=== PATIENT | female | born 1985 | race Caucasian/White ===

== ENCOUNTER 2019-01-04 10:30 | Inpatient (IN) | payer MEDICAID, OTHER, SELFPAY ==
[2019-01-13] MEDS ORDERED: NS w/ Oxytocin 10 units 500 ML IV SCH (23:45)
[2019-01-13] MEDS ORDERED: Lactated Ringer's 1,000 ML IV SCH (23:45)
[2019-01-13] MEDS ORDERED: Butorphanol Tartrate 1 MG/ML VIAL SLOW IVP PRN (23:55)
[2019-01-13] MEDS ORDERED: Ondansetron PF 4 MG/2 ML Vial IVP PRN (23:55)
[2019-01-13] MEDS ORDERED: hydrALAZINE 20 MG/ML VIAL SLOW IVP PRN (23:55)
[2019-01-13] MEDS ORDERED: Promethazine HCl 25 MG/ML VIAL IM PRN (23:55)
[2019-01-13] MEDS ORDERED: NS / Oxytocin 40 units/1000ml 1,000 ML IV PRN (23:55)
[2019-01-13] MEDS ORDERED: Misoprostol 200 MCG TAB PR PRN (23:55)
[2019-01-13] MEDS ORDERED: Lidocaine 1% (PF) 30 ML VIAL SC PRN (23:55)
[2019-01-13] MEDS ORDERED: Ibuprofen 800 MG TAB PO PRN (23:55)
[2019-01-13] MEDS ORDERED: Methylergonovine 0.2 MG/ML VIAL IM PRN (23:55)
[2019-01-13] MEDS ORDERED: Carboprost 250 MCG/ML AMP IM PRN (23:55)
--- NOTE | 2019-01-13 23:55 | PDOC.FPROB ---
FMR OB H&P: HPI - History of Present Illness Chief Complaint: IOL History of Present Illness: 33 yo @ 38 weeks by 7.6 US presents for IOL 2/2 intractable pain from cholelithiasis. Pt reports contractions occurring for a few hours prior to arrival and now reports feeling painful contractions q5min. Reports pos movement, no bleeding, discahrge, LOF, fever, chills. Primary Care Physician: Catalina JASON FMR OB H&P: Current - Care : 7 Para: 6 Gestational age: 37 Due date: 01/28/2019 Dating Criteria: 7.6US Course/Complications: Chronic cholelithiasis causing intractable pain. 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: NILM pap this - Surgical History Sx History: None - Social History Social History: No alcohol tobacco or drug use - Family History Family History: None FMR OB H&P: Medications - Current Home Medications: Medication Instructions Recorded Confirmed Type Pnv No.95/Ferrous Fum/Folic AC 50 mg PO DAILY 01/02/19 01/13/19 History [ Caplet] Allergies/Adverse Reactions: Allergies Allergy/AdvReac Type Severity Reaction Status Date / Time No Known Allergies Allergy Verified 01/10/19 22:10 FMR OB H&P: ROS - Review of Systems General: denies: fever/chills, weight/appetite/sleep changes ENT: denies: nasal congestion, rhinorrhea Cardiovascular: reports: edema. denies: chest pain, palpitation Respiratory: denies: cough, shortness of breath Gastrointestinal: reports: abdominal pain (currently denies, prior episodic colicky pain). denies: nausea, vomiting, diarrhea, constipation Genitourinary (Female): reports: contractions. denies: dysuria, vaginal discharge, vaginal bleeding, vaginal pressure Musculoskeletal: denies: pain, tenderness Neurologic: denies: numbness Integumentary: denies: itching, rash Psychological: denies: anxiety FMR OB H&P: Vital Signs - Maternal Vital signs: WNL - Heart Tones Baseline: 140 Variability: moderate Acceleration: absent Deceleration: absent Category: category 1 [place] contractions every: 5 min FMR OB H&P: Physical Exam - Physical Exam General: NAD, awake, alert and oriented HEENT: normocephalic and atraumatic, PERRLA, EOMI, MMM, conjunctiva clear Neck: trachea midline, no LAD Chest: non-tender to palpation Heart: RRR, normal S1/S2, no murmurs/rubs/gallops, pulses present General: CTAB, no respiratory distress, good air movement, no rales/rhonchi, no wheezing, no retractions Abdomen: soft, gravid, non-tender, bowel sound present, no masses Musculoskeletal: pulses present, FROM in all four extremities Neurological: cranial nerves II through XII intact Skin: no rash Lymphatic: no purpura - Pelvic Exam Vulva: normal hair distribution, appropriate brenna stage SVE: 3/50/-2 Salas score: 6 Presentation: vertex FMR OB H&P: A/P - Problem List (1) Grand multiparity in labor and delivery, antepartum Current Visit: Yes Status: Acute Code(s): O09.40 - SUPERVISION OF W GRAND MULTIPARITY, UNSP TRIMESTER (2) History of hemorrhage Current Visit: Yes Status: Acute Code(s): Z86.2 - PRSNL HISTORY OF DIS OF THE BLD/BLD-FORM ORG/IMMUN MECHNSM (3) Current Visit: No Status: Acute (4) Cholelithiasis Current Visit: No Status: Acute Code(s): K80.20 - CALCULUS OF GALLBLADDER W/ O CHOLECYSTITIS W/O OBSTRUCTION Disposition: 1) TIUP w/ cholelithiasis, symptomatic - IOL with pitocin as needed for adequate contractions - pt currently bairon q5, recheck cervix 4 hours 2) Cholelithiasis, asymptomatic currently 3) Grand multiparity - prior PPH, aware 4) h/o pph - aware Dispo: Stable, proceed with IOL and pt will likely require pp surgical consult IP vs OP dependent on symptoms. Discussion: Date/Time: 01/13/19 1750 This H&P was discussed with [] and [] who agree with the above documentation and plan.
[2019-01-14 00:59] LABS: Hemoglobin 10.7 g/dL (12.0-16.0); Mean Corpuscular HGB CONC 34.1 g/dL (32.0-36.0); Mean Corpuscular Hemoglobin 25.4 pg (27.0-31.0); Mean Corpuscular Volume 74.4 fL (78.0-98.0); Mean Platelet Volume 10.1 fL (7.4-10.4); Platelet Count 284 thou/uL (130-400); RBC Distribution Width 19.1 % (11.5-14.5); White Blood Cell (WBC) Count 8.8 thou/uL (4.8-10.8)
[2019-01-14 01:21] LABS: Hep B Surf Ag Non-Reactive S/CO (NonReactive)
[2019-01-14 01:30] LABS: Syphilis Antibody Nonreactive (Nonreactive); Syphilis Antibody Index 0.05 S/CO (<1.00 Non-Reactive)
[2019-01-14 04:17] VITALS: BMI 28.5
--- NOTE | 2019-01-14 06:07 | PDOC.EVN ---
Event Note - Event Note Event Note: Strip reviewed. Cat one pos accels no late or variables. BP normal. Cervix unchanged and ctx have decreased. Pitocin started.
[2019-01-14 07:03] LABS: HBSAg Index 0.21 S/CO (0-0.99)
[2019-01-14] MEDS ORDERED: Fentanyl 4 mcg/Bup 0.1% Cadd 100 ML ONE (08:27)
--- NOTE | 2019-01-14 08:39 | PDOC.LDPN ---
Labor & Delivery Progress Note - Subjective Subjective: painful contractions - Objective Vital signs reviewed and normal: yes General: resting, breathing through contractions - Assessment (1) Grand multiparity in labor and delivery, antepartum Code(s): O09.40 - SUPERVISION OF W GRAND MULTIPARITY, UNSP TRIMESTER Current Visit: Yes Status: Acute (2) History of hemorrhage Code(s): Z86.2 - PRSNL HISTORY OF DIS OF THE BLD/BLD-FORM ORG/IMMUN MECHNSM Current Visit: Yes Status: Acute (3) Anemia affecting Code(s): O99.019 - ANEMIA COMPLICATING , UNSPECIFIED TRIMESTER Current Visit: No Status: Acute (4) Cholelithiasis Code(s): K80.20 - CALCULUS OF GALLBLADDER W/O CHOLECYSTITIS W/O OBSTRUCTION Current Visit: No Status: Acute (5) Current Visit: No Status: Acute -: at 38.1 wks by 7.6 wk sono here for eIOL 2/2 intractable pain from cholelithiasis # Expectant Management - on 10 ml/hr of pitocin, cxns q2-4, painful - desires epidural - /-3 at 0815 - will proceed with epidural and pursue active management to try to deter PPH - risks/benefits of balloon, AROM, epidural all discussed with mother - will plan for balloon after epidural # Cholelithiasis, asymptomatic currently - 3mm CBD on last US # Grand multiparity, h/o PPH - required transfusion after last delivery
[2019-01-14] MEDS ORDERED: Lidocaine 1.5%/Epinephrine 1:200,000 5 ML AMPUL IJ ONE (08:44)
[2019-01-14] MEDS ORDERED: Acetaminophen 325 MG TAB PO PRN (08:50)
[2019-01-14] MEDS ORDERED: Ondansetron PF 4 MG/2 ML Vial IVP PRN (08:50)
[2019-01-14] MEDS ORDERED: Lactated Ringer's 500 ML IV PRN (08:50)
[2019-01-14] MEDS ORDERED: Naloxone HCl 0.4 mg/ml Vial IVP PRN ×2 (08:50)
[2019-01-14] MEDS ORDERED: diphenhydrAMINE 50 MG/ML VIAL IVP PRN (08:50)
[2019-01-14] MEDS ORDERED: ePHEDrine/0.9% NaCl/PF SYRINGE 50 mg/10 ml SLOW IVP PRN (08:50)
[2019-01-14] MEDS ORDERED: Promethazine HCl 25 MG/ML VIAL IM PRN (08:50)
[2019-01-14] MEDS ORDERED: Communication Order-Pharmacy FS SCH (09:00)
[2019-01-14] MEDS ORDERED: Fentanyl 4 mcg/Bupivacaine 0.1% Cassette 100 ML EPIDURAL SCH (09:00)
--- NOTE | 2019-01-14 11:47 | PDOC.LDPN ---
Labor & Delivery Progress Note - Subjective Subjective: comfortable - Objective Vital signs reviewed and normal: yes General: NAD, resting - Assessment (1) Grand multiparity in labor and delivery, antepartum Code(s): O09.40 - SUPERVISION OF W GRAND MULTIPARITY, UNSP TRIMESTER Current Visit: Yes Status: Acute (2) History of hemorrhage Code(s): Z86.2 - PRSNL HISTORY OF DIS OF THE BLD/BLD-FORM ORG/IMMUN MECHNSM Current Visit: Yes Status: Acute (3) Anemia affecting Code(s): O99.019 - ANEMIA COMPLICATING , UNSPECIFIED TRIMESTER Current Visit: No Status: Acute (4) Cholelithiasis Code(s): K80.20 - CALCULUS OF GALLBLADDER W/O CHOLECYSTITIS W/O OBSTRUCTION Current Visit: No Status: Acute (5) Current Visit: No Status: Acute -: at 38.1 wks by 7.6 wk sono here for eIOL 2/2 intractable pain from cholelithiasis # Expectant Management - on 10 ml/hr of pitocin, cxns q2-4, painful - epidural placed - /-2 at 1130, AROM clear fluid 930 - pursue active management to try to deter PPH # Cholelithiasis, asymptomatic currently - 3mm CBD on last US # Grand multiparity, h/o PPH
[2019-01-14] MEDS ORDERED: NS / Oxytocin 40 units/1000ml 1,000 ML ONE (13:39)
[2019-01-14] MEDS ORDERED: Methylergonovine 0.2 MG/ML VIAL ONE (13:39)
[2019-01-14] MEDS ORDERED: Carboprost 250 MCG/ML AMP ONE (13:39)
[2019-01-14] MEDS ORDERED: Misoprostol 200 MCG TAB ONE (13:39)
[2019-01-14] MEDS ORDERED: Milk Of Magnesia 30 ML UDCUP PO PRN ×2 (14:18→21:58)
[2019-01-14] MEDS ORDERED: Lanolin Ointment 7 GM TUBE TOP PRN ×2 (14:18→21:58)
[2019-01-14] MEDS ORDERED: Preparation H Ointment 28 GM TUBE PR PRN ×2 (14:18→21:58)
[2019-01-14] MEDS ORDERED: Benzocaine-Menthol 82.5 ML CAN TOP PRN ×2 (14:18→21:58)
[2019-01-14] MEDS ORDERED: Bisacodyl 10 MG SUPP PR PRN ×2 (14:18→21:58)
[2019-01-14] MEDS ORDERED: diphenhydrAMINE 25 MG CAP PO PRN ×2 (14:18→21:58)
[2019-01-14] MEDS ORDERED: diphenhydrAMINE 50 MG/ML VIAL ONE (14:55)
[2019-01-14 15:00] LABS: %Basophils 0.1 % (0.0-1.0); %Eosinophils 0.2 % (0.0-10.0); %Lymphocytes 22.3 % (21.0-51.0); %Monocytes 5.5 % (0.0-10.0); %Neutrophils 71.8 % (42.0-75.0); Hemoglobin 12.3 g/dL (12.0-16.0); Mean Corpuscular HGB CONC 33.2 g/dL (32.0-36.0); Mean Corpuscular Hemoglobin 25.4 pg (27.0-31.0); Mean Corpuscular Volume 76.4 fL (78.0-98.0); Mean Platelet Volume 9.8 fL (7.4-10.4); Platelet Count 311 thou/uL (130-400); RBC Distribution Width 19.1 % (11.5-14.5); Red Blood Cell (RBC) Count 4.85 mill/uL (4.20-5.40); White Blood Cell (WBC) Count 18.1 thou/uL (4.8-10.8)
[2019-01-14 15:14] LABS: Anion Gap 22 mmol/L (10-20); Carbon Dioxide 16 mmol/L (22-29); Chloride 105 mmol/L (98-107); Potassium 4.5 mmol/L (3.5-5.1); Sodium 138 mmol/L (136-145)
[2019-01-14 15:26] LABS: Actual Bicarbonate (HCO3a) 11.8 mEq/L (22-28); Base Excess (BEa) -12.8 mEq/L (-2.0 to +3.0); Carboxyhemoglobin (COHb) 0.8 gm% (0.0-3.0); Hemoglobin (Hb) 12.6 g/dL (12.0-16.0); O2 Tension (PaO2) 116.6 mmHg (80.0-100.0); Potassium - ABG Lab 5.01 mmol/L (3.70-5.30)
[2019-01-14 15:27] LABS: ALV-art Gradient 52.415 (0-20); CO2 Tension 24.5 mmHg (35.0-45.0); Puncture Site LBA
--- NOTE | 2019-01-14 15:30 | PDOC.EVN ---
Event Note - Event Note Event Note: Called to bedside for sudden onset shortness of breath At bedside patient clutching chest saying it is hard to breath Initial BP with patient appropriately shaking PP was 180/100 Hooked up on manager monitoring and HR 155, sats 100% on RA 2 episodes of vomiting PE Gen: distressed Pulm: CTA-B CV: tachycardic, no murmur, cap <3 OB: appropriate bleeding PP, firm uterus Plan - patient improved after 50mg Benadryl IV - pulse to 110s resting comfortably - reaction to methergine (allergy?), anxiety, PE are differential - Patient resting comfortably at this time, EKG sinus tachycardia, CXR WNL, sending patient for CTA to r/o PE
[2019-01-14] MEDS ORDERED: diphenhydrAMINE 50 MG/ML VIAL IVP SCH (15:33)
[2019-01-14] MEDS ORDERED: Iopamidol 370 76% 100 ML VIAL ONE (15:44)
[2019-01-14 16:03] LABS: Lactic Acid 3.2 mmol/L (0.5-2.2)
--- NOTE | 2019-01-14 16:52 | CT ---
Exam: CT angiogram of the chest HISTORY: Chest pain. Recent delivery. Code green. COMPARISON: None TECHNIQUE: CT angiogram of the chest is performed in the axial plane. Three-dimensional reformatted i mages are submitted for interpretation FINDINGS: Mediastinum: No mass, lymphadenopathy or hematoma. HEART: Normal size. No significant pericardial fluid. Aorta: No aneurysm or dissection Upper solid abdominal viscera: No abnormality enhancement. Trachea and central bronchi: Patent Pleural spaces: No effusion Lung parenchyma: No masses or consolidation. Dependent atelectatic change. Pneumothorax: None Nonspecific subcutaneous emphysema in the right periclavicular soft tissues. Osseous structures: No osteoblastic or osteolytic lesions. Air within the central spinal canal is pre sumed to be due to recent epidural. Pulmonary arteries:Adequate contrast opacification of the pulmonary arterial system to the level of t he segmental arteries. No filling defect to suggest thromboembolism. IMPRESSION: 1. No evidence of pulmonary artery embolism to the level of the segmental arteries. 2. Subcutaneous emphysema as well as air in the central spinal canal is presumed to be iatrogenic.
--- NOTE | 2019-01-14 16:59 | RAD ---
CHEST ONE VIEW: 01/14/19 HISTORY: Shortness of breath. COMPARISON: None. FINDINGS: Overlying external pacer pads are noted. Normal cardiac silhouette. Pulmonary vessels and hilum are n ormal. Costophrenic angles are clear. No masses or consolidation. No pneumothorax on the supine proj ection. IMPRESSION: No acute cardiopulmonary process. POS: OFF
[2019-01-14 17:35] LABS: ALT (SGPT) 11 U/L (8-55); AST (SGOT) 17 U/L (5-34); Albumin 3.6 g/dL (3.5-5.0); Alkaline Phosphatase 271 U/L (40-150); Anion Gap 24 mmol/L (10-20); BUN (Urea Nitrogen) 4 mg/dL (7.0-18.7); Bilirubin, Total 2.4 mg/dL (0.2-1.2); Calc. Creatinine Clearance 141 mL/min (70-130); Calcium 9.9 mg/dL (7.8-10.44); Carbon Dioxide 15 mmol/L (22-29); Chloride 104 mmol/L (98-107); Estimated GFR-MDRD Greater than 90; Globulin 4.1 g/dL (2.4-3.5); Glucose 69 mg/dL (70-105); Potassium 4.4 mmol/L (3.5-5.1); Protein, Total 7.7 g/dL (6.0-8.3); Sodium 139 mmol/L (136-145)
[2019-01-14] MEDS ORDERED: diphenhydrAMINE 25 MG CAP PO SCH (18:00)
[2019-01-14] MEDS ORDERED: Docusate Calcium (SURFAK) 240 MG CAP PO SCH (21:00)
[2019-01-14] MEDS ORDERED: diphenhydrAMINE 25 MG CAP ONE (21:32)
[2019-01-14] MEDS ORDERED: Adacel (T-DAP) 0.5 ML SYRINGE IM ONE (21:58)
[2019-01-14] MEDS: Dextrose 5%-Lactated Ringers 1,000 ML IV SCH (22:46)
[2019-01-14] MEDS: Ibuprofen 800 MG TAB PO PRN (22:50)
[2019-01-14] MEDS: Docusate Calcium (SURFAK) 240 MG CAP PO SCH (22:51)
[2019-01-14 23:21] LABS: Lactic Acid 1.4 mmol/L (0.5-2.2)
[2019-01-15] MEDS: Dextrose 5%-Lactated Ringers 1,000 ML IV SCH (02:33)
[2019-01-15] MEDS ORDERED: diphenhydrAMINE 25 MG CAP PO SCH (04:00)
[2019-01-15 04:59] LABS: Hemoglobin 10.7 g/dL (12.0-16.0); Mean Corpuscular HGB CONC 32.9 g/dL (32.0-36.0); Mean Corpuscular Hemoglobin 25.1 pg (27.0-31.0); Mean Corpuscular Volume 76.1 fL (78.0-98.0); Mean Platelet Volume 9.5 fL (7.4-10.4); Platelet Count 265 thou/uL (130-400); RBC Distribution Width 19.3 % (11.5-14.5); Red Blood Cell (RBC) Count 4.27 mill/uL (4.20-5.40)
[2019-01-15] MEDS: Ibuprofen 800 MG TAB PO PRN ×2 (06:10→14:15)
--- NOTE | 2019-01-15 08:07 | PDOC.PP ---
Post Progress Note Post Day #: 1 Subjective: Pt doing well. Denies any SOB. Denies any fever or chills. Denies any acute events overnight. Pt ready to go home if able to day. Denies any itching or rash. PO intake tolerated: yes Flatus: yes Ambulation: yes Vital Signs (12 hours) Temp Pulse Resp BP BP Pulse Ox 01/15/19 04:07 97.7 F 62 16 113/63 01/14/19 23:40 97.7 F 77 20 108/61 01/14/19 22:43 98.4 F 73 20 110/61 01/14/19 21:42 99.0 F 76 18 110/56 L 97 Weight Weight 70.76 kg - Physical Examination General: NAD Cardiovascular: no m/r/g, RRR Respiratory: clear to auscultation bilaterally, non-labored breathing Abdominal: + bowel sounds, lochia (Reports as light), no distention, appropriately TTP Fundus firm & at: below umbilicus Extremities: negative homans (B) Neurological: no gross focal deficits Psychiatric: A&Ox3, normal affect Result Diagrams: 01/15/19 04:35 01/14/19 14:50 Additional Labs: Post Labs Blood Type B POSITIVE 01/14/19 00:32 Hep Bs Antigen Non-Reactive S/CO (NonReactive) 01/14/19 00:32 (1) Grand multiparity in labor and delivery, antepartum Code(s): O09.40 - SUPERVISION OF W GRAND MULTIPARITY, UNSP TRIMESTER Status: Acute (2) Anemia, Code(s): O90.81 - ANEMIA OF THE PUERPERIUM Status: Acute Comment: secondary to acute blood loss at delivery and in early ppartum period (3) Cholelithiasis Code(s): K80.20 - CALCULUS OF GALLBLADDER W/O CHOLECYSTITIS W/O OBSTRUCTION Status: Acute (4) Grand multipara Code(s): Z64.1 - PROBLEMS RELATED TO MULTIPARITY Status: Acute (5) Term delivered Code(s): O80 - ENCOUNTER FOR FULL-TERM UNCOMPLICATED DELIVERY Status: Acute - Assessment/Plan ->7 at 38.1 wk by 7.6 wk sono delivered CHRISTOPHER Morrow via on 01/14/19 @ 14: 05. eIOL 2/2 intractable pain from cholelithiasis # Post Day 1 -Routine post care -Pt H&H stable. Reports light lochia. -Pt breast/bottle feeding #Alllergic Reaction -Pt had episode of increased tachy and SOB yesterday after delivery. -CTA negative. CXR negative. Labs unremarkable. -At this time we believe pt had an allergic reaction to methergine given for pph ppx as pt had pph in prior requiring transfusion -Has been on sonido benadryll for last 24 hours # Cholelithiasis, asymptomatic currently - 3mm CBD on last US -Bili 2.1. -Will want General Surgery consult outpatient. # Grand multiparity, h/o PPH
--- NOTE | 2019-01-15 08:52 | DN ---
DATE OF PROCEDURE: 01/14/2019 DELIVERING PHYSICIANS: Include Dr. Mackenzie Flores, Dr. Arjun House, and Dr. Dash Arnold, PGY-3. PROCEDURE PERFORMED: Spontaneous vaginal delivery. ANESTHESIA: Epidural. QBL: 50 mL. PREOPERATIVE DIAGNOSES: 1. Term intrauterine in labor. 2. Elective induction of labor secondary to intractable pain from cholelithiasis. 3. History of hemorrhage requiring transfusion. POSTOPERATIVE DIAGNOSES: 1. Term intrauterine , delivered. 2. Elective induction of labor secondary to intractable pain from cholelithiasis. 3. History of hemorrhage requiring transfusion. INDICATIONS: A 33-year-old female G7, P6, presented to L and D for induction of labor due to intractable pain due to cholelithiasis for the 3 mm stone found on ultrasound prior to this induction. DELIVERY NOTE: This is a 33-year-old female, GRajan, P6-0-0-6 at 38 and 1 week. She delivered a viable female infant at 1405 hours on 01/14/2019. Following an uneventful antepartum course, a vigorous female was delivered over the intact perineum in the occiput anterior position. Anterior shoulder and remainder of body delivered. Body cord was noted. Head was held down, and mouth and nares were bulb suctioned. Cord clamped, cut, and cord blood collected. Placenta delivered with intact with a three-vessel cord noted. Some fundal massage was performed, and fundus was firm. Cervix and vagina were inspected and found free of lacerations. We then gave oral Cytotec and a dose of Methergine for hemorrhage prophylaxis as on her prior , she required a transfusion. Next, infant went to nursery in good condition for routine care. Apgars were 9 and 9 at 1 and 5 minutes respectively. The patient tolerated the delivery well and went to for routine recovery care. Job ID: [id number]
[2019-01-15] MEDS ORDERED: Adacel (T-DAP) 0.5 ML SYRINGE IM ONE (09:00)
[2019-01-15] MEDS ORDERED: Prenatal Vitamin 1 TAB PO SCH ×2 (09:00)
[2019-01-15] MEDS: Docusate Calcium (SURFAK) 240 MG CAP PO SCH (09:01)
--- NOTE | 2019-01-15 13:45 | PRG ---
DATE OF SERVICE: 01/14/2019 EVENT NOTE: SUBJECTIVE: The patient is a 33-year-old female who just delivered a female via uncomplicated term spontaneous vaginal delivery at 1405 hours. I was suddenly called to the room approximately 1437 hours with the patient reports of acute shortness of breath and chest pain. When I arrived, the patient was sitting up, very anxious in appearance, shaking violently. Nurse reported her initial saturation was 85%. However by the time I arrived just moments later, the patient was saturating 99% on room air, pulse was in the 140s. Blood pressure was difficult to obtain; however, the patient obtained a blood pressure at the ankle while she is sitting at 196/22 and a pulse in the 170s at that time. A code clementine had been called at the time of my arrival. At this point, EKG, chest x-ray, cardiac enzymes, lactic acid, and ABG were all ordered. Given her violent shaking, EKG was difficult to obtain. Again in discussing and talking to the patient, the patient reported chest pain and difficulty breathing. The patient on exam appeared to be having no signs of circulatory problems as had good capillary refill. Good color in her lips. The patient at this prior time of delivery had received 800 mcg of Cytotec, 0.2 mg of Methergine, and 40 of Pitocin as a prophylactic measure for hemorrhage. The patient and her prior delivery had experienced hemorrhage requiring blood transfusions. The patient was sat up and blood pressures were retaken and noted to be 180s/141, pulse of 117, again saturating 100% at 1457 hours. The patient was given 50 mg of Benadryl IV in thought of a possible allergic reaction. Within 10 minutes, the patient had reverted back to a calm state without shaking. Pain had resolved. Blood pressure improved to 140/63, pulse in the 120s. Most recent blood pressure at 1548 hours is 124/58, pulse of 105. The patient again reports that she has resolution of her symptoms. In talking to the , the patient denies any previous reactions similar with her 6 prior deliveries. In reviewing lab work, the patient was noted to have a white count of 18.1, hemoglobin 12.3, hematocrit 37.1, and platelets of 311,000. ABG showed a blood gas of 7.3 with a bicarb of 11.1, CO2 of 24.5, O2 of 116, base excess of -12.8, sodium of 138, potassium of 4.5, chloride of 105. Lactic acid and cardiac enzymes are still pending. ASSESSMENT AND PLAN: The patient appears to have some kind of reaction in the immediate period. Given the quick resolution of symptoms with Benadryl, she has likely had a reaction to medication given her symptoms of chest pain, shortness of breath, several episodes of nausea and vomiting. During the case, her hypertension and tachycardia may be attributed to Methergine. A CT angiogram will be performed to evaluate for any evidence of pulmonary embolism. Cardiac enzymes are still pending, which will be followed. At this time, the patient will be continued on p.o. Benadryl 25 mg q.6 hours for the next 24 hours. Addendum: Work up all negative. After resolution of symptoms with benadryl pt has remained stable with out any concerning signs or symptoms. Job ID: [id number] MTDD
[2019-01-15 20:11] VITALS: BP 114/77; TEMP 98.3
== END 2019-01-15 20:21 | disposition home or self-care (01) | DRG 806 ==
LOC: EDSTATUS 10:30 → MERGE 10:30 → L&D 01-13 22:00 → 3SW 01-14 21:52 → 3SE 01-15 11:25 → 3SW 01-15 11:26
PROVIDERS: ADMIT Obstetrics & Gynecology; ATTEND Obstetrics & Gynecology
PROC: 10907ZC Drainage of Amniotic Fluid, Therapeutic from Products of Conception, Via Natural or Artificial Opening (ICD-10-PCS; principal; 2019-01-13)
PROC: 10E0XZZ Delivery of Products of Conception, External Approach (ICD-10-PCS; 2019-01-13)
PROC: 3E033VJ Introduction of Other Hormone into Peripheral Vein, Percutaneous Approach (ICD-10-PCS; 2019-01-13)
DX: O99.62 Diseases of the digestive system complicating childbirth (principal); D62 Acute posthemorrhagic anemia; Z37.0 Single live birth; K80.20 Calculus of gallbladder without cholecystitis without obstruction; O99.02 Anemia complicating childbirth; Z3A.39 39 weeks gestation of pregnancy; O9A.23 Injury, poisoning and certain other consequences of external causes complicating the puerperium; T48.0X1A Poisoning by oxytocic drugs, accidental (unintentional), initial encounter
CPT/HCPCS: 36415; 51702; 71045; 71275; 76815; 80051; 82805; 83605; 84484; 85027; 86780; 86850; 86900; 86901; 87340; 90715; 93005; 93010; J0360; J0595; J1200; J2210; J2590; J3490; Q0163; Q9967

== ENCOUNTER 2019-01-04 10:38 | Day surgery (SDC) | payer SELFPAY ==
[2019-01-04 10:58] VITALS: BMI 27.6
[2019-01-04] MEDS ORDERED: Acetaminophen 500 MG TAB PO SCH (11:15)
[2019-01-04] MEDS ORDERED: Iron Sucrose Complex 500 MG in Sodium Chloride 0.9% 250 ML 250 ML IVPB SCH (11:15)
== END 2019-01-04 11:39 | disposition home health service (06) ==
LOC: EDBD → L&D/OP 10:38
PROVIDERS: ATTEND Obstetrics & Gynecology
DX: O99.019 Anemia complicating pregnancy, unspecified trimester (principal); Z3A.00 Weeks of gestation of pregnancy not specified
CPT/HCPCS: 99282; J1756; J7050

== ENCOUNTER 2019-01-10 21:30 | Inpatient (IN) | payer OTHER, SELFPAY ==
[2019-01-10] MEDS ORDERED: hydrALAZINE 20 MG/ML VIAL SLOW IVP PRN (22:04)
[2019-01-10 22:10] VITALS: BMI 25.2
--- NOTE | 2019-01-10 22:13 | PDOC.FPROB ---
FMR OB H&P: HPI - History of Present Illness Chief Complaint: Abdominal pain Indentification: 33 year old at 37.4 wks History of Present Illness: 33 year old at 37.4 wks by 7.6 wk sono presents with abdominal pain since 10:00 AM. Patient reports the pain started out mild. She generally didn't feel well, but approximately 1-2 hours prior to arrival, patient noted what she thought to be intense contractions that were unbearable. She was brought in by her daughter and her who report she has been in constant pain for the last hour. The pain does not come and go and nothing seems to resolve the pain. Patient denies associated N/V/D, chest pain. She endorses some shortness of breath secondary to pain. Patient endorses movement and denies vaginal bleeding, vaginal discharge, or LoF. 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 History: Denies history of abnormal Pap smears - Surgical History Sx History: Denies - Social History Social History: Denies alcohol, tobacco, or drug use - Family History Family History: Denies significant FH FMR OB H&P: Medications - Current Home Medications: Medication Instructions Recorded Confirmed Type Ferrous Fumarate [Ferrocite] 324 mg PO BID 12/21/18 01/10/19 History Pnv No.95/Ferrous Fum/Folic AC 50 mg PO DAILY 01/02/19 01/10/19 History [ Caplet] Allergies/Adverse Reactions: Allergies Allergy/AdvReac Type Severity Reaction Status Date / Time No Known Allergies Allergy Verified 01/10/19 22:10 FMR OB H&P: ROS - Review of Systems General: reports: other (general malaise). denies: fever/chills, weight/ appetite/sleep changes Eyes: denies: vision changes, scotomas ENT: denies: nasal congestion, rhinorrhea, sore throat Cardiovascular: denies: chest pain, palpitation, edema Respiratory: reports: shortness of breath. denies: cough, congestion Gastrointestinal: reports: abdominal pain, nausea. denies: diarrhea Genitourinary (Female): denies: dysuria, vaginal discharge, vaginal pain, vaginal bleeding Musculoskeletal: denies: pain, stiffness Neurologic: denies: numbness, loss of counsciousness Integumentary: denies: itching, rash, lesions Hematologic/Lymphatic: denies: prolonged or excessive bleeding Psychological: denies: depression, anxiety FMR OB H&P: Vital Signs - Maternal Vital signs: BP 109/67 Pulse 82 Afebrile - Heart Tones Baseline: 140 Variability: moderate Acceleration: present Deceleration: absent [place] contractions every: None FMR OB H&P: Physical Exam - Physical Exam General: awake, alert and oriented Deviation from normal: moderate amount of distress, difficulty talking 2/2 pain HEENT: EOMI, MMM Heart: RRR, no murmurs/rubs/gallops, no edema General: CTAB, no respiratory distress Abdomen: soft, gravid Deviation from normal: Diffuse abdominal tenderness worse in RUQ Musculoskeletal: pulses present, FROM in all four extremities Neurological: no tremor, no focal deficit Skin: no rash, capillary refill <2 seconds - Pelvic Exam Vulva: normal hair distribution, no lesions, no discharge, no blood SVE: closed/thick/high FMR OB H&P: A/P - Problem List (1) Term Current Visit: Yes Status: Acute Code(s): Z34.90 - ENCNTR FOR SUPRVSN OF NORMAL , UNSP, UNSP TRIMESTER (2) Cholelithiasis Current Visit: Yes Status: Acute Code(s): K80.20 - CALCULUS OF GALLBLADDER W /O CHOLECYSTITIS W/O OBSTRUCTION (3) Anemia affecting Current Visit: No Status: Acute Code(s): O99.019 - ANEMIA COMPLICATING , UNSPECIFIED TRIMESTER (4) Grand multipara Current Visit: No Status: Acute Code(s): Z64.1 - PROBLEMS RELATED TO MULTIPARITY Disposition: 33 year old at 37.4 wks presents with abdominal pain since 10:00 AM which became much more severe and persistent over the last hour. 1. Abdominal pain likely 2/2 cholelithiasis - Gallstones with distended gallbladder on RUQ ultrasound - Bilateral renal ultrasound negative, although blood on UA without evidence for infection, so cannot fully exclude kidney stones - 10 mg IM morphine given - Likely abdominal pain is 2/2 colic from above - Will fluid hydrate and attempt pain control - CBC with WBC 11 - CMP with mildly elevated tbili at 1.3 - Continue to monitor and if can get patient's pain under control, may be able to d/c home with close follow up - May need to continue medications for pain management 2. Anemia of - Continue iron supplementation 3. Abnormal 1h GTT - No 3h GTT results available - Will call [facility] for results 4. Hx of PPH - Caution during next delivery. At increased risk given multiparity 5. Grandmultip - At risk for PPH Dispo: Obs for a few hours after pain medication. If pain resolved with fluids and medication, may be able to d/c home with bentyl and low fat diet. Patient would need follow up on Saturday. Patient not in labor. No evidence of contractions, and cervix closed/thick/high. No indication for delivery at this time. Discussion: Date/Time: 01/10/192210 This H&P was discussed with Dr. Shah who agrees with the above documentation and plan. Signature: Citlalli Cedillo, PGY-3
[2019-01-10] MEDS ORDERED: Ondansetron ODT 4 MG TAB PO SCH (22:15)
[2019-01-10] MEDS ORDERED: Ondansetron PF 4 MG/2 ML Vial IVP SCH (22:15)
[2019-01-10] MEDS ORDERED: Morphine 10 MG/ML VIAL IM SCH (22:15)
[2019-01-10] MEDS ORDERED: Lactated Ringer's 1,000 ML IV SCH (22:30)
[2019-01-10 23:09] LABS: #Basophils 0.1 thou/uL (0.0-0.2); #Eosinphils 0.1 thou/uL (0.0-0.7); #Lymphocytes 1.5 thou/uL (1.20-3.40); #Monocytes 0.6 thou/uL (0.11-0.59); #Neutrophils 8.7 thou/uL (1.40-6.50); %Basophils 0.5 % (0.0-1.0); %Eosinophils 0.7 % (0.0-10.0); %Lymphocytes 13.8 % (21.0-51.0); %Monocytes 5.8 % (0.0-10.0); %Neutrophils 79.2 % (42.0-75.0); Hemoglobin 9.9 g/dL (12.0-16.0); Mean Corpuscular Hemoglobin 25.6 pg (27.0-31.0); Mean Corpuscular Volume 75.4 fL (78.0-98.0); Mean Platelet Volume 9.5 fL (7.4-10.4); Platelet Count 278 thou/uL (130-400); Red Blood Cell (RBC) Count 3.87 mill/uL (4.20-5.40)
[2019-01-10 23:16] LABS: Bacteria/HPF None Seen HPF (None Seen); Bilirubin Negative (Negative); Blood, Urine 1+ (Negative); Clarity Clear (Clear); Glucose, Urine (Dipstick) Normal (Negative); Leukocyte Negative Leu/uL (Negative); Nitrite Negative (Negative); Protein, Urine (Dipstick) 50 mg/dL (Neg-Trace); Squamous Epithelial 0-3 HPF (0-3); Urobilinogen 3 mg/dL (Less than 2); WBC/HPF 0-3 HPF (0-3)
--- NOTE | 2019-01-10 23:19 | ULT ---
ULTRASOUND ABDOMEN COMPLETE: DATE: 01/10/2019 HISTORY: 33-year-old female in third trimester of presents with severe epigastric and right upper qu adrant abdominal pain. FINDINGS: Liver:Normal size and echogenicity. Gallbladder:Distended. A small layer of tiny mobile gallstones at the dependent portion of the gallbl adder body lumen. Normal mural thickness. No pericholecystic fluid. Positive tenderness over gallbladder. Common duct:3 mm Spleen:No splenomegaly. Pancreas:Nonspecific sonographic appearance. No pancreatic ductal dilation. Kidneys:No hydronephrosis. Abdominal aorta:Proximal normal caliber. Mid and distal portions not visualized due to gravid uterus. Inferior vena cava:Proximal portion unremarkable. Urinary bladder: Bladder ultrasound was ordered. The bladder is not visualized. At least part of it i s probably obscured because of head. The bladder does not appear to be distended. IMPRESSION: 1. Cholelithiasis within distended gallbladder. 2. Urinary bladder not visualized.
[2019-01-10 23:23] LABS: ALT (SGPT) 10 U/L (8-55); AST (SGOT) 19 U/L (5-34); Albumin 3.2 g/dL (3.5-5.0); Alkaline Phosphatase 211 U/L (40-150); Anion Gap 14 mmol/L (10-20); BUN (Urea Nitrogen) 6 mg/dL (7.0-18.7); Bilirubin, Total 1.3 mg/dL (0.2-1.2); Calc. Creatinine Clearance 161 mL/min (70-130); Calcium 8.8 mg/dL (7.8-10.44); Carbon Dioxide 18 mmol/L (22-29); Chloride 106 mmol/L (98-107); Estimated GFR-MDRD Greater than 90; Globulin 3.3 g/dL (2.4-3.5); Glucose 98 mg/dL (70-105); Potassium 3.5 mmol/L (3.5-5.1); Protein, Total 6.5 g/dL (6.0-8.3); Sodium 134 mmol/L (136-145)
[2019-01-10 23:24] LABS: Amphetamine Not Detected (NotDetected); Barbiturates Screen Not Detected (NotDetected); Benzodiazepine Screen Not Detected (NotDetected); Cocaine Metabolite Screen Not Detected (NotDetected); Medtox Control Line Valid? VALID (VALID); Medtox Reader # READER 1; Methadone Not Detected (NotDetected); Methamphetamine Not Detected (NotDetected); Opiate Screen Detected (NotDetected); Oxycodone Screen Not Detected (NotDetected); Phencyclidine (PCP) Not Detected (NotDetected); THC/Cannabinoid Screen Not Detected (NotDetected); Tricyclic Screen Not Detected (NotDetected)
--- NOTE | 2019-01-10 23:49 | PDOC.EVN ---
Event Note - Event Note Event Note: OBGYN Attending H&P (Attestation) Time: 2350 CC: ABD Pain Patient at 37.4 weeks with abdominal pain. CX closed Sono with GB stones but normal CBD No mention of renal stones No evidence labor. Afebrile. Normal LFTs, UA with blood. Suspected biliary colic, now better with meds...CBD normal. Not an indication for delivery if LFTs are normal and afebrile. Await pain relief, IVF hydrate...likely home and follow up in 48 hours. Please see full H&P.
--- NOTE | 2019-01-11 01:57 | PDOC.EVN ---
Event Note - Event Note Event Note: SXS still with suspected colic. GB sono with no thickening...renal sono was ok We will try bentyl iv Afebrile
--- NOTE | 2019-01-11 01:59 | PDOC.EVN ---
Event Note - Event Note Event Note: We will OBS until 0600
--- NOTE | 2019-01-11 06:46 | PDOC.EVN ---
Event Note - Event Note Event Note: repeat RUQ sono done this AM to reeval CBD was same...no CBD dilation. Patient still states some discomfort after her bentyl. I do not suspect abruption clinically. I dont suspect labor. Labs pending
--- NOTE | 2019-01-11 06:53 | ULT ---
LIMITED ABDOMINAL ULTRASOUND: INDICATIONS: Re-evaluate common bile duct for dilatation. COMPARISON: Abdominal ultrasound dated 01/10/2019. FINDINGS: Again seen are layered gallstones within the gallbladder with the gallbladder appearing slightly less distended than on the prior exam. The common bile duct measures 2.4 to 3.1 mm with an average CBD m easurement of 3 mm. No sonographic Weber sign is reported. IMPRESSION: 1. Stable cholelithiasis. 2. Slightly less distention of the gallbladder when compared to the prior study, dated 01/10/2019. 3. Common bile duct measuring 3 mm. POS:
[2019-01-11 07:11] LABS: ALT (SGPT) 18 U/L (8-55); AST (SGOT) 26 U/L (5-34); Albumin 3.3 g/dL (3.5-5.0); Alkaline Phosphatase 232 U/L (40-150); Anion Gap 13 mmol/L (10-20); BUN (Urea Nitrogen) Less than 4 mg/dL (7.0-18.7); Bilirubin, Total 1.6 mg/dL (0.2-1.2); Calc. Creatinine Clearance 153 mL/min (70-130); Calcium 9.2 mg/dL (7.8-10.44); Carbon Dioxide 21 mmol/L (22-29); Chloride 104 mmol/L (98-107); Estimated GFR-MDRD Greater than 90; Globulin 3.5 g/dL (2.4-3.5); Glucose 87 mg/dL (70-105); Potassium 3.7 mmol/L (3.5-5.1); Protein, Total 6.8 g/dL (6.0-8.3); Sodium 134 mmol/L (136-145)
--- NOTE | 2019-01-11 07:50 | PDOC.EVN ---
Event Note - Event Note Event Note: AST and ALT are normal...but T Bili is 1.6
[2019-01-11] MEDS ORDERED: Butorphanol Tartrate 1 MG/ML VIAL SLOW IVP SCH (08:30)
[2019-01-11] MEDS ORDERED: Butorphanol Tartrate 1 MG/ML VIAL ONE (08:31)
[2019-01-11] MEDS ORDERED: Ondansetron PF 4 MG/2 ML Vial ONE (11:41)
[2019-01-11] MEDS ORDERED: Fentanyl 100 MCG/2 ML VIAL SLOW IVP SCH ×2 (12:45→16:30)
[2019-01-11] MEDS ORDERED: Promethazine HCl 25 MG/ML VIAL IM/IV PRN (16:18)
[2019-01-11] MEDS ORDERED: Fentanyl 100 MCG/2 ML VIAL SLOW IVP PRN (16:24)
--- NOTE | 2019-01-11 16:26 | PDOC.EVN ---
Event Note - Event Note Event Note: 3 posterior Patient still having abdominal pain. Pain medications are helping some but not totally resolving it. Feels baby moving often. Denies fevers, chills, sweats. Feels hungry and would like to eat. will proceed with transfer to for continued pain management.
[2019-01-11] MEDS ORDERED: Acetaminophen 325 MG TAB PO SCH (18:45)
[2019-01-11] MEDS: Lactated Ringer's 1,000 ML IV SCH (19:35)
[2019-01-11] MEDS ORDERED: Acetaminophen/Codeine 30-300mg Tablet PO PRN (20:09)
[2019-01-11] MEDS: Acetaminophen/Codeine 30-300mg Tablet PO PRN (20:51)
[2019-01-11] MEDS: Dicyclomine 20 MG TAB PO SCH (22:04)
[2019-01-11] MEDS ORDERED: Milk Of Magnesia 30 ML UDCUP PO PRN (22:15)
[2019-01-12] MEDS ORDERED: Acetaminophen/Codeine 30-300mg Tablet PO PRN (00:45)
[2019-01-12] MEDS: Acetaminophen/Codeine 30-300mg Tablet PO PRN (00:46)
[2019-01-12] MEDS: Lactated Ringer's 1,000 ML IV SCH ×3 (00:51→19:13)
--- NOTE | 2019-01-12 02:14 | PDOC.EVN ---
Event Note - Event Note Event Note: called to bedside for abdominal pain. pain lower abdomen, contractions. no epigastric pain. stadol 2mg iv now. will check cervix. if persists will transfer to L&D for expectant management and pain control
[2019-01-12] MEDS ORDERED: Butorphanol Tartrate 1 MG/ML VIAL SLOW IVP SCH (02:15)
[2019-01-12] MEDS ORDERED: Lactated Ringer's 1,000 ML IV SCH (02:30)
--- NOTE | 2019-01-12 07:23 | PDOC.FM ---
- Subjective Subjective: Pt reports minimal pain this AM. She states that her pain is primarily epigastric. She endorses some nausea but denies vomiting. She denies fever, chills, or malaise. She reports FM and denies contractions, vaginal bleeding, or vaginal discharge. - Objective MAR Reviewed: Yes Vital Signs & Weight: Vital Signs (12 hours) Temp Pulse Resp BP BP Pulse Ox 01/12/19 00:27 98.8 F 82 16 109/65 97 01/11/19 21:52 98.7 F 79 18 112/69 97 Weight Weight 70.76 kg I&O: 01/11/19 01/12/19 01/13/19 06:59 06:59 06:59 Intake Total 2732 Balance 2732 Result Diagrams: 01/10/19 22:50 01/12/19 08:16 Phys Exam - Physical Examination Constitutional: NAD HEENT: PERRLA, moist MMs Neck: no JVD, full ROM Respiratory: no wheezing, clear to auscultation bilateral Cardiovascular: RRR, no significant murmur (systolic flow murmur) Gastrointestinal: positive bowel sounds Gravid, epigastric and RUQ tender to palpation Musculoskeletal: no edema, pulses present Neurological: moves all 4 limbs Psychiatric: normal affect, A&O x 3 Skin: cap refill <2 seconds Dx/Plan (1) Cholelithiasis Code(s): K80.20 - CALCULUS OF GALLBLADDER W/O CHOLECYSTITIS W/O OBSTRUCTION Status: Acute (2) Term Code(s): Z34.90 - ENCNTR FOR SUPRVSN OF NORMAL , UNSP, UNSP TRIMESTER Status: Acute (3) Anemia affecting Code(s): O99.019 - ANEMIA COMPLICATING , UNSPECIFIED TRIMESTER Status : Acute (4) Grand multipara Code(s): Z64.1 - PROBLEMS RELATED TO MULTIPARITY Status: Acute - Plan Plan: This is a 33 yo at 37.6 wks by LMP/7.6 wk sono Cholelithiasis -US shows improvement in distention with no CBD distention -Continue PO pain management with tylenol #3 -NST this AM shows reactive NST, accels present, no decels, baseline at 135 -Continue monitoring, consider induction if pain does not improve. -Continue IV fluids as pt continues to have nausea -Continue low fat diet -Last check last night showed C/T/-1 Term -Reactive NST as above -GBS negative Anemia affecting -Improving. Hgb was 8.5 on 12/17/18, currently 9.9 -Continue PO iron Glucose intolerance Grand multiparity -Increased risk of PPH Hx of hemorrhage require transfusion in 2015 Addendum - Attending - Attending Attestation Date/Time: 01/12/19 0906 I personally evaluated the patient and discussed the management with Dr. Lopez I agree with the History, Examination, Assessment and Plan documented above with any addition or exceptions noted below. Pt denies epigastric pain. pain is primary lower in her abdomen now involving uterus. reports ctx on occassion. denies nausea/vomiting vital signs wnl pain 7/10 improving on tylenol 3 neg seals's sign uterine tenderness of uterus nst 140s w/ mod ltv +15X15 accels x2 in 20 min no decel toco with irritability. no pattern discernable iup 37wks cholelithiasis- n/v resolved- advancing diet today pain - tylenol 3- will monitor today.
[2019-01-12 08:44] LABS: ALT (SGPT) 11 U/L (8-55); AST (SGOT) 16 U/L (5-34); Albumin 3.3 g/dL (3.5-5.0); Alkaline Phosphatase 211 U/L (40-150); Anion Gap 12 mmol/L (10-20); BUN (Urea Nitrogen) Less than 4 mg/dL (7.0-18.7); Calc. Creatinine Clearance 155 mL/min (70-130); Calcium 9.2 mg/dL (7.8-10.44); Carbon Dioxide 23 mmol/L (22-29); Chloride 108 mmol/L (98-107); Estimated GFR-MDRD Greater than 90; Globulin 3.4 g/dL (2.4-3.5); Glucose 83 mg/dL (70-105); Potassium 3.8 mmol/L (3.5-5.1); Protein, Total 6.7 g/dL (6.0-8.3); Sodium 139 mmol/L (136-145)
[2019-01-12] MEDS: Dicyclomine 20 MG TAB PO SCH ×2 (09:32→13:22)
[2019-01-12] MEDS ORDERED: Acetaminophen 500 MG TAB PO PRN (16:30)
[2019-01-12] MEDS ORDERED: Dicyclomine 20 MG TAB PO PRN (16:32)
[2019-01-12 20:29] VITALS: BP 110/55; TEMP 98.7
--- NOTE | 2019-01-13 12:42 | DIS ---
DATE OF ADMISSION: 01/11/2019 DATE OF DISCHARGE: 01/12/2019 ADMITTING ATTENDING: Ken Shah MD DISCHARGE ATTENDING: Edwin Gallardo MD RESIDENT: Maurice Lopez DO CONSULTS: None. PROCEDURES PERFORMED: 1. Abdominal ultrasound showing cholelithiasis with a distended bladder and common bile duct of 3 mm. 2. Repeat abdominal ultrasound showing stable cholelithiasis, slightly less distended gallbladder compared to the previous study and consistent 3 mm common bile duct. PRIMARY DIAGNOSIS: Cholelithiasis during term . SECONDARY DIAGNOSES: Anemia of , history of hemorrhage DISCHARGE MEDICATIONS: 1. Tylenol No. 3, take one tablet p.o. q.4 hours p.r.n. pain. 2. Bentyl 20 mg p.o. q.i.d. p.r.n. abdominal discomfort. 3. vitamin 1 p.o. daily. 4. Ferrous fumarate 324 mg p.o. b.i.d. 5. Tylenol 500 mg p.o. q.6 hours p.r.n. pain. DISCONTINUED MEDICATIONS: None. BRIEF HISTORY OF PRESENT ILLNESS/HOSPITAL COURSE: This 33-year-old, G7, P6-0-0-6 at 37 and 4 weeks ultrasound, who presented with abdominal pain starting prior to admission. States the pain started mild and became sharp. She reports nothing improved the pain. The patient was admitted and ultrasound as above was performed. The patient was diagnosed with cholelithiasis, started on Bentyl, Tylenol No. 3 for her pain. The patient also received IV fluid resuscitation. During her stay, the patient's pain improved and gallbladder appeared to be less distended per ultrasound. Due to the condition of her pain, the patient was scheduled for an induction on 01/13/2019 at 7:15 in the evening. The patient was given option at the time of discharge to stay the night until her induction or to leave for preparation. The patient elected to leave to get ready for her induction. DISPOSITION: Stable. DISCHARGE INSTRUCTIONS: 1. Location: Home. 2. Diet: Low fat. 3. Activity: As tolerated. 4. Followup: Followup in one day for induction. Job ID: [id number]
== END 2019-01-12 19:40 | disposition home health service (06) | DRG 833 ==
LOC: L&D/OP 21:30 → 3SW 01-11 16:46 → OBSVTOIN 01-11 16:46
PROVIDERS: ADMIT Obstetrics & Gynecology; ATTEND Obstetrics & Gynecology
DX: O99.613 Diseases of the digestive system complicating pregnancy, third trimester (principal); K80.20 Calculus of gallbladder without cholecystitis without obstruction; O99.013 Anemia complicating pregnancy, third trimester; D64.9 Anemia, unspecified; Z3A.37 37 weeks gestation of pregnancy
CPT/HCPCS: 36415; 59025; 76700; 76705; 76856; 80053; 80306; 81001; 82248; 82977; 85025; 99285; J0500; J0595; J2270; J2405; J3010; Q0162

== ENCOUNTER 2025-02-27 13:30 | Inpatient (IN) | payer SELFPAY ==
[2025-02-27] MEDS ORDERED: Rocuronium Bromide 10 MG/ML (10ML VIAL) ONE (13:40)
[2025-02-27 14:02] LABS: #Basophils 0.05 10x3/uL (0.0-0.2); #Eosinophils 0.03 10x3/uL (0.0-0.7); #Monocytes 0.50 10x3/uL (0.11-0.59); #Neutrophils 6.25 10x3/uL (1.40-6.50); %Basophils 0.6 % (0.0-1.0); %Eosinophils 0.3 % (0.0-10.0); %Lymphocytes 24.7 % (21.0-51.0); %Monocytes 5.5 % (0.0-10.0); %Neutrophils 68.8 % (42.0-75.0); Hematocrit 35.7 % (36.0-47.0); Hemoglobin 11.7 g/dL (12.0-16.0); Mean Corpuscular Hemoglobin 27.5 pg (27.0-31.0); Mean Corpuscular Volume 84.0 fL (78.0-98.0); Platelet Count 333 10x3/uL (130-400); Red Blood Cell (RBC) Count 4.25 mill/uL (4.20-5.40); White Blood Cell (WBC) Count 9.08 10x3/uL (4.8-10.8)
[2025-02-27 14:05] LABS: Actual Bicarbonate (HCO3a) 21.3 mEq/L (22-28); Analyzer IN Cardio ER; Base Excess (BEa) -2.3 mEq/L (-2.0 to +3.0); CO2 Tension 33.1 mmHg (35.0-45.0); Calcium, Ionized (arterial) 1.15 mmol/L (1.12-1.30); Hematocrit-ABG 37 % (36.0-47.0); Hemoglobin (Hb) 12.6 g/dL (12.0-16.0); O2 Tension (PaO2), arterial 483.4 mmHg (80.0-100.0); Potassium - ABG Lab 3.23 mmol/L (3.70-5.30); pH, Arterial 7.427 (7.35-7.45)
[2025-02-27 14:06] LABS: ALV-art Gradient -168.275 mmHg (0-20); Puncture Site Right Radial artery
[2025-02-27 14:11] LABS: BHCG - Serum Negative (NEGATIVE); Pregs Control Background? CLEAR/WHITE (CLR/WHITE); Pregs Control Bar Appear? YES (CONTROL BAR)
[2025-02-27 14:21] LABS: ALT (SGPT) 19 U/L (Less than 34); AST (SGOT) 21 U/L (11-34); Acetaminophen Less than 10 mcg/mL (Less than 10); Albumin 3.8 g/dL (3.1-4.5); Alkaline Phosphatase 64 U/L (40-110); Anion Gap 13 mmol/L (10-20); BUN (Urea Nitrogen) 7 mg/dL (7.0-18.7); Bilirubin, Total 1.1 mg/dL (0.3-1.2); Calc. Creatinine Clearance 0 mL/min (70-130); Calcium 8.6 mg/dL (7.8-10.44); Carbon Dioxide 20 mmol/L (22-29); Chloride 111 mmol/L (98-107); Globulin 3.8 g/dL (2.4-3.5); Glucose 86 mg/dL (70-105); Potassium 3.3 mmol/L (3.5-5.1); Salicylate Less than 8.0 mg/dL (Less than 8.0); Sodium 141 mmol/L (136-145)
[2025-02-27 14:24] LABS: CAUTI Indications for Culture Alt mental st,lethar; Glucose, Urine (Dipstick) Normal (Negative); Leukocyte 500 Leu/uL (Negative); Protein, Urine (Dipstick) Negative (Neg-Trace); RBC/HPF 21-50 HPF (0-3); Specific Gravity, Urine 1.010 (1.002-1.036)
[2025-02-27 14:30] LABS: INR-International Normal Ratio 1.1; Prothrombin Time 14.5 sec (12.0-14.7)
[2025-02-27 14:31] LABS: PTT 34.7 sec (22.9-36.1)
[2025-02-27 14:40] LABS: Bacteria/HPF 2+ HPF (None Seen); WBC/HPF 21-50 HPF (0-3)
[2025-02-27 14:41] LABS: Cocaine Metabolite Screen Negative (Negative); THC/Cannabinoid Screen Negative (Negative); Tricyclic Screen Negative (Negative)
[2025-02-27 14:43] LABS: Urine Culture Reflex Yes Yes
[2025-02-27] MEDS ORDERED: Ventilator Sedation Protocol 1 EACH FS SCH (15:42)
[2025-02-27] MEDS ORDERED: DISCONTINUE PREVIOUS NARCOTIC PAIN MEDICATIONS AND BENZODIAZEPINES FS SCH (16:00)
[2025-02-27] MEDS ORDERED: Propofol BOLUS 1,000 MG/100 ML VIAL IV PRN (16:00)
[2025-02-27] MEDS ORDERED: Fentanyl BOLUS 100 ML IVPB PRN (16:00)
[2025-02-27 16:13] LABS: Acetaminophen Less than 10 mcg/mL (Less than 10)
[2025-02-27 19:22] VITALS: BMI 28.0
[2025-02-27] MEDS: Pantoprazole 40 MG VIAL IVP SCH (21:49)
[2025-02-28 04:15] LABS: #Basophils 0.04 10x3/uL (0.0-0.2); #Eosinophils Less than 0.03 10x3/uL (0.0-0.7); #Monocytes 0.74 10x3/uL (0.11-0.59); #Neutrophils 9.50 10x3/uL (1.40-6.50); %Basophils 0.3 % (0.0-1.0); %Eosinophils 0.0 % (0.0-10.0); %Lymphocytes 15.5 % (21.0-51.0); %Monocytes 6.1 % (0.0-10.0); %Neutrophils 77.8 % (42.0-75.0); Hematocrit 32.0 % (36.0-47.0); Hemoglobin 10.3 g/dL (12.0-16.0); Mean Corpuscular Hemoglobin 27.6 pg (27.0-31.0); Mean Corpuscular Volume 85.8 fL (78.0-98.0); Platelet Count 283 10x3/uL (130-400); Red Blood Cell (RBC) Count 3.73 mill/uL (4.20-5.40); White Blood Cell (WBC) Count 12.21 10x3/uL (4.8-10.8)
[2025-02-28 04:50] LABS: ALT (SGPT) 21 U/L (Less than 34); AST (SGOT) 21 U/L (11-34); Albumin 3.1 g/dL (3.1-4.5); Alkaline Phosphatase 58 U/L (40-110); Anion Gap 11 mmol/L (10-20); BUN (Urea Nitrogen) 5 mg/dL (7.0-18.7); Bilirubin, Total 2.0 mg/dL (0.3-1.2); Calc. Creatinine Clearance 0 mL/min (70-130); Calcium 8.3 mg/dL (7.8-10.44); Carbon Dioxide 22 mmol/L (22-29); Chloride 110 mmol/L (98-107); Globulin 3.0 g/dL (2.4-3.5); Glucose 96 mg/dL (70-105); Potassium 3.6 mmol/L (3.5-5.1); Sodium 139 mmol/L (136-145)
[2025-02-28] MEDS: cefTRIAXone\\ROCEPHIN 2 GM in Sodium Chloride 0.9% 100 ML IVPB SCH (09:48)
[2025-02-28] MEDS: Enoxaparin 40 MG (0.4 mL) SYRINGE SC SCH (09:49)
[2025-02-28 11:50] LABS: #Basophils 0.04 10x3/uL (0.0-0.2); #Eosinophils 0.04 10x3/uL (0.0-0.7); #Monocytes 0.61 10x3/uL (0.11-0.59); #Neutrophils 6.96 10x3/uL (1.40-6.50); %Basophils 0.4 % (0.0-1.0); %Eosinophils 0.4 % (0.0-10.0); %Lymphocytes 22.5 % (21.0-51.0); %Monocytes 6.2 % (0.0-10.0); %Neutrophils 70.2 % (42.0-75.0); Hematocrit 35.1 % (36.0-47.0); Hemoglobin 11.2 g/dL (12.0-16.0); Mean Corpuscular Hemoglobin 27.3 pg (27.0-31.0); Mean Corpuscular Volume 85.6 fL (78.0-98.0); Platelet Count 320 10x3/uL (130-400); Red Blood Cell (RBC) Count 4.10 mill/uL (4.20-5.40); White Blood Cell (WBC) Count 9.91 10x3/uL (4.8-10.8)
[2025-02-28 12:09] LABS: ALT (SGPT) 19 U/L (Less than 34); AST (SGOT) 21 U/L (11-34); Albumin 3.4 g/dL (3.1-4.5); Alkaline Phosphatase 64 U/L (40-110); Anion Gap 12 mmol/L (10-20); BUN (Urea Nitrogen) 4 mg/dL (7.0-18.7); Bilirubin, Total 2.5 mg/dL (0.3-1.2); Calc. Creatinine Clearance 0 mL/min (70-130); Calcium 8.7 mg/dL (7.8-10.44); Carbon Dioxide 22 mmol/L (22-29); Chloride 111 mmol/L (98-107); Globulin 3.4 g/dL (2.4-3.5); Glucose 86 mg/dL (70-105); Potassium 3.4 mmol/L (3.5-5.1); Sodium 142 mmol/L (136-145)
[2025-03-01 09:33] VITALS: BP 116/74
[2025-03-01 09:38] VITALS: TEMP 98.5
== END 2025-03-01 11:00 | DRG 917 ==
LOC: ERS 13:30 → EEVIPCON 13:30 → CCU 15:41 → T4-B 02-28 13:42
PROVIDERS: ADMIT Internal Medicine; ATTEND Hospitalist
PROC: XX20X89 Monitoring of Brain Electrical Activity, Computer-aided Detection and Notification, New Technology Group 9 (ICD-10-PCS; principal; 2025-02-28)
PROC: 4A033R1 Measurement of Arterial Saturation, Peripheral, Percutaneous Approach (ICD-10-PCS; 2025-02-28)
PROC: 3E03329 Introduction of Other Anti-infective into Peripheral Vein, Percutaneous Approach (ICD-10-PCS; 2025-02-28)
PROC: 5A1935Z Respiratory Ventilation, Less than 24 Consecutive Hours (ICD-10-PCS; 2025-02-28)
DX: T39.1X2A Poisoning by 4-Aminophenol derivatives, intentional self-harm, initial encounter (principal); J96.01 Acute respiratory failure with hypoxia; R45.851 Suicidal ideations; G93.40 Encephalopathy, unspecified; T65 Toxic effect of other and unspecified substances; T39.312A Poisoning by propionic acid derivatives, intentional self-harm, initial encounter; E87.6 Hypokalemia; T45.0X2A Poisoning by antiallergic and antiemetic drugs, intentional self-harm, initial encounter
CPT/HCPCS: 31500; 36415; 36416; 36600; 51701; 70450; 71045; 80053; 80143; 80306; 80307; 81001; 82805; 83605; 84146; 84484; 84703; 85025; 85610; 85730; 87086; 93005; 93010; 94002; 95819; 96365; 96366; 96375; J0696; J1650; J2060; J2470; J2704; J7070; J7120